=== PATIENT | male | born 2005 | race Caucasian/White ===

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

== ENCOUNTER 2023-11-23 10:20 | Emergency (ER) | payer MEDICAID, OTHER ==
[~2023-11-23] VITALS: Ht 170.2 cm; Wt 59.0 kg
[~2023-11-23 10:20] MED LIST: LEVO-481 PO
[2023-11-23 10:47] VITALS: BP 122/57; PULSE 125; RESP 20; TEMP 97.8; O2SAT 97
[2023-11-23 11:13] LABS: AMPHETAMINE, URINE POSITIVE ng/ml (NEG <=1000); BARBITURATE, URINE NEGATIVE ng/ml (NEG <=200); BENZODIAZEPINE, URINE NEGATIVE ng/mL (NEG <=200); CANNABINOID, URINE NEGATIVE ng/mL (NEG <=50); COCAINE, URINE NEGATIVE ng/mL (NEG <=300); OPIATE, URINE NEGATIVE ng/mL (NEG <=2000); PHENCYCLIDINE SCREEN,URINE NEGATIVE ng/mL (NEG <=25)
[2023-11-23 11:43] VITALS: PULSE 97; RESP 20; TEMP 98.1; O2SAT 88
== END 2023-11-23 11:42 ==
LOC: MED 10:20
DX: S50.01XA Contusion of right elbow, initial encounter (principal); F15.10 Other stimulant abuse, uncomplicated; Z79.2 Long term (current) use of antibiotics; W18.39XA Other fall on same level, initial encounter; Y93.89 Activity, other specified; Y92.89 Other specified places as the place of occurrence of the external cause; Y99.8 Other external cause status
CPT/HCPCS: 73080; 80305; 99284